=== PATIENT | male | born 1985 | race Caucasian/White ===

== ENCOUNTER 2016-06-30 20:22 | Emergency (ER) | payer MEDICAID, OTHER ==
[~2016-06-30] VITALS: Ht 167.6 cm; Wt 93.0 kg
[2016-07-01 00:02] LABS: DEFINITIVE VIEW TRANSMISSION; Hematocrit 48.6 % (41.0-53.0); Hemoglobin 16.2 g/dL (13.5-17.5); Mean Corpuscular Hgb Conc. 33.4 g/dL (32.0-36.0); Mean Corpuscular Volume 86.7 fL (80.0-100.0); Mean Platelet Volume 6.5 fL (7.4-10.4); Platelet Count (auto) 295 10^3/uL (140-450); Red Cell Distribution Width 12.2 % (11.6-16.0); SUSPECT VIEW TRANSMISSION; White Blood Cell 12.7 10^3/uL (4.4-10.8)
[2016-07-01 00:08] LABS: Metamyelocytes % 0; Myelocytes % 0; Promyelocytes % 0; Reactive Lymphocytes 0
[2016-07-01 00:18] LABS: Albumin 4.1 g/dL (3.4-5.0); BUN/Creatinine Ratio 14.4; Calcium 8.5 mg/dL (8.5-10.1)
[2016-07-01 00:21] LABS: Bilirubin, Total 0.4 mg/dL (0.2-1.0); Total Protein 7.7 g/dL (6.4-8.2)
[2016-07-01 00:26] LABS: Platelet Estimate Adequate
[2016-07-01] MEDS ORDERED: HYDROcodone-ACET 5/325MG TAB PO ONE ×2 (00:30→07:30)
[2016-07-01] MEDS ORDERED: PIPERACILLIN-TAZOB 3.375GM 100 ML IV ONE (03:00)
[2016-07-01] MEDS ORDERED: HYDROmorphone HCL 2 MG/ML VL IV ONE ×2 (03:00→06:45)
[2016-07-01] MEDS ORDERED: PROMETHAZINE HCL 25 MG/ML 1ML IV ONE (03:00)
[2016-07-01] MEDS ORDERED: ONDANSETRON HCL 4 MG/2 ML VIAL IV ONE (06:45)
[2016-07-01] MEDS ORDERED: TETANUS-DIPTH-ACEL PERTUSSIS 0.5ML SYRG IM ONE (06:45)
[2016-07-01 08:14] VITALS: BP 132/74
== END 2016-07-01 08:49 | disposition short-term general hospital (02) ==
LOC: ER 20:44
DX: S61.250A Open bite of right index finger without damage to nail, initial encounter (principal); D72.829 Elevated white blood cell count, unspecified; Z23 Encounter for immunization; W55.01XA Bitten by cat, initial encounter; Y93.89 Activity, other specified; Y99.8 Other external cause status; Y92.89 Other specified places as the place of occurrence of the external cause
CPT/HCPCS: 36415; 73140; 80053; 82962; 85007; 85027; 85049; 90471; 90715; 96365; 96375; 99285; J1170; J2543; J2550; J2405

== ENCOUNTER 2017-01-01 23:55 | Emergency (ER) | payer OTHER ==
[~2017-01-01] VITALS: Ht 167.6 cm; Wt 93.0 kg
[2017-01-02 07:29] VITALS: BP 131/89
== END 2017-01-02 07:30 | disposition home or self-care (01) ==
LOC: ER 23:55
DX: J02.9 Acute pharyngitis, unspecified (principal)
CPT/HCPCS: 71010

== ENCOUNTER 2017-06-28 19:54 | Emergency (ER) | payer OTHER ==
[~2017-06-28] VITALS: Ht 167.6 cm; Wt 99.8 kg
[2017-06-28 20:00] VITALS: BP 127/90
[2017-06-28 21:05] LABS: Basophils # (auto) 0.1 uL; Eosinophils # (auto) 0.1 uL; Eosinophils % (auto) 1.7 % (0.0-7.0); Hematocrit 44.2 % (41.0-53.0); Hemoglobin 15.4 g/dL (13.5-17.5); Lymphocytes # (auto) 1.6 uL; Lymphocytes % (auto) 24.8 % (10.0-50.0); Mean Corpuscular Hemoglobin 30.5 pg (28.0-32.0); Mean Corpuscular Hgb Conc. 34.8 g/dL (32.0-36.0); Mean Corpuscular Volume 87.6 fL (80.0-100.0); Monocytes # (auto) 0.6 uL; Monocytes % (auto) 9.2 % (0.0-12.0); Neutrophils # (auto) 4.1 uL; Neutrophils % (auto) 63.3 % (37.0-80.0); Nucleated Red Blood Cells % 0.1 %; Red Blood Cells 5.05 10^6/uL (4.5-5.90); Red Cell Distribution Width 13.2 % (11.8-14.3); White Blood Cell 6.4 10^3/uL (4.4-10.8)
[2017-06-28 21:06] LABS: Platelet Count (auto) 232 10^3/uL (140-450)
[2017-06-28 21:21] LABS: INR 0.94 (0.9-1.15); Partial Thromboplastin Time 25.7 sec (22.64-33.71); Prothrombin Time 10.2 sec (9.37-12.3)
[2017-06-28 21:35] LABS: Albumin 4.2 g/dL (3.4-5.0); BUN/Creatinine Ratio 24.5; Bilirubin, Total 0.6 mg/dL (0.2-1.0); Calcium 8.3 mg/dL (8.5-10.1); Magnesium 2.6 mg/dL (1.6-2.6); Potassium 3.9 mmol/L (3.5-5.1); Total Protein 7.4 g/dL (6.4-8.2)
== END 2017-06-29 01:40 | disposition left against medical advice (07) ==
LOC: ER 19:54 → EDBD 19:54 → ER 06-29 01:40
DX: R07.89 Other chest pain (principal); R11.2 Nausea with vomiting, unspecified; R51 Headache; R42 Dizziness and giddiness; Z53.21 Procedure and treatment not carried out due to patient leaving prior to being seen by health care provider
CPT/HCPCS: 36415; 71045; 80053; 83735; 84484; 85025; 85610; 85730; 93005

== ENCOUNTER 2018-01-21 10:32 | Emergency (ER) | payer BC, OTHER ==
[~2018-01-21] VITALS: Ht 170.2 cm; Wt 95.3 kg
[2018-01-21 10:48] VITALS: BP 136/86
== END 2018-01-21 12:20 | disposition home or self-care (01) ==
LOC: ER 10:37
DX: S86.911A Strain of unspecified muscle(s) and tendon(s) at lower leg level, right leg, initial encounter (principal); Z90.89 Acquired absence of other organs; X58.XXXA Exposure to other specified factors, initial encounter; Y93.89 Activity, other specified; Y99.8 Other external cause status; Y92.89 Other specified places as the place of occurrence of the external cause
CPT/HCPCS: 73590

== ENCOUNTER 2018-01-22 15:08 | Emergency (ER) | payer BC ==
[~2018-01-22] VITALS: Ht 167.6 cm; Wt 97.5 kg
[2018-01-22] MEDS ORDERED: cefTRIAXone SOD 1,000 MG VL IM ONE (15:45)
[2018-01-22] MEDS ORDERED: methylPREDNISolone SOD SUCC 125 MG/2 ML VL IM ONE (15:45)
[2018-01-22] MEDS ORDERED: KETOROLAC TROMETH 60MG/2ML VIAL IM ONE (15:45)
[2018-01-22 17:21] VITALS: BP 128/75
== END 2018-01-22 16:49 | disposition home or self-care (01) ==
LOC: ER 15:08
DX: L03.115 Cellulitis of right lower limb (principal); Z90.89 Acquired absence of other organs
CPT/HCPCS: 93971; 96372; 99284; J0696; J1885; J2930

== ENCOUNTER 2019-07-10 15:55 | Emergency (ER) | payer BC, OTHER ==
[~2019-07-10] VITALS: Ht 167.6 cm; Wt 93.0 kg
[2019-07-10 17:02] VITALS: BP 157/91
== END 2019-07-10 18:15 | disposition home or self-care (01) ==
LOC: EDBD 15:55 → ER 15:55
DX: S93.401A Sprain of unspecified ligament of right ankle, initial encounter (principal); X58.XXXA Exposure to other specified factors, initial encounter; Y93.89 Activity, other specified; Y92.89 Other specified places as the place of occurrence of the external cause; Y99.8 Other external cause status
CPT/HCPCS: 73610

== ENCOUNTER 2022-07-05 22:58 | Emergency (ER) | payer BC, OTHER ==
[~2022-07-05] VITALS: Ht 167.6 cm; Wt 93.2 kg
[2022-07-06] MEDS ORDERED: CYCL-837 PO (01:10)
[2022-07-06] MEDS ORDERED: IBUP800T27 PO (01:10)
[2022-07-06] MEDS ORDERED: KETOROLAC TROMETH 60MG/2ML VIAL IM ONE (01:15)
[2022-07-06 03:25] VITALS: BP 119/65
== END 2022-07-06 03:25 | disposition home or self-care (01) ==
LOC: ER 22:58
DX: S46.911A Strain of unspecified muscle, fascia and tendon at shoulder and upper arm level, right arm, initial encounter (principal); F41.9 Anxiety disorder, unspecified; Z90.89 Acquired absence of other organs; X58.XXXA Exposure to other specified factors, initial encounter; Y93.89 Activity, other specified; Y92.89 Other specified places as the place of occurrence of the external cause; Y99.8 Other external cause status
CPT/HCPCS: 29105; 73030; 96372; 99283; J1885